=== PATIENT | female | born 1985 | race Caucasian/White ===

== ENCOUNTER 2016-09-17 13:05 | Emergency (ER) | payer OTHER ==
--- NOTE | 2016-09-17 15:26 | ED NURSING NOTES ---
Clinical Report - Nurses [facility] [address] [place] [address] 09/17/2016 13:07 Patient: GERALD OTTO TRIAGE Triage time 13:Sep 17 2016. Chief Complaint: NAUSEA and VOMITING and (pt reports waking during the night with n/v- last emesis 45 minutes ago). Alert. No acute distress. SEPSIS SCREEN: Sepsis Screen. Negative (no infection suspected/documented). --13:29 Joseph Pinon R.N. 13:22 09/17/16. BP: 117/81. HR: 97. RR: 17. O2 saturation: 100% on room air. Temp: 98.6 F (oral). Pain level now: 11/17. --13:29 Joseph Pinon R.N. Weight: 79.3 kg stated. Height/Length: 67 inches Per Patient. BMI: 27.4. --13:27 Joseph Pinon R.N. Medications Ranitidine HCl Oral. --13:27 Joseph Pinon R.N. BuPROPion HCl Oral 300 mg, daily. --13:27 Joseph Pinon R.N. HydrOXYzine HCl Oral. --13:27 Joseph Pinon R.N. Medication/allergy information source: the patient. --13:29 Joseph Pinon R.N. Allergies None. --13:28 Joseph Pinon R.N. History Arrived by private vehicle. Historian: patient. The patient has had nausea and vomiting. 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 PAST MEDICAL HX: Immunizations: up-to-date. Last normal menstrual period- 11 days ago. SOCIAL HX: Smoker- current status unknown. Alcohol use; consumes beer occasionally. History of drug use. ("smoked a j here on the way here"). No recent travel. No infectious disease exposure. No known contact with a sick individual. ABUSE ASSESSMENT: No report of abuse. SELF HARM ASSESSMENT: A self harm assessment was performed. The patient answered "no" to the question "Have you recently felt down, depressed, or hopeless?", "Have you noticed less interest or pleasure in doing things?", "Do you have thoughts of harming or killing yourself?", "Are you here because you tried to hurt yourself?", "Have you ever tried to hurt yourself before today?", "Have you recently had thoughts about harming or killing others?" and "Do you have any dangerous items in your possession?". FALL RISK ASSESSMENT: Fall risk assessment completed. No fall risk identified. NUTRITIONAL RISK ASSESSMENT: The nutritional risk assessment revealed no deficiencies. FUNCTIONAL ASSESSMENT: Functional assessment: no impairments noted. LEARNING NEEDS ASSESSMENT: The learning needs assessment revealed no barriers. SKIN INTEGRITY ASSESSMENT: Skin integrity risk assessment completed. No skin integrity risk identified. --13:29 Joseph Pinon R.N. PROBLEMS: Candidiasis. Cellulitis. Abscess. Depression. Dental Pain. Dental Abscess. URI. Migraine Headache. Anxiety Reaction. --13:28 Joseph Pinon R.N. ADDITIONAL SURGERIES: Dental Surgery. Oral surgery . Tubal Ligation. --13:28 Joseph Pinon R.N. Interventions ID band on patient. To treatment room. --13:29 Joseph Pinon R.N. PHYSICAL ASSESSMENT Ambulatory to room. Patient gowned. GENERAL / NEURO / PSYCH: Alert. Oriented X 4. Appears in no acute distress. HEENT: Mucous membranes are pink. RESPIRATORY: Respirations not labored. Breath sounds within normal limits. CVS: Capillary refill less than 2 seconds. GI / : Abdomen soft and nontender. Bowel sounds within normal limits. SKIN: Skin is warm and dry. --13:29 Joseph Pinon R.N. NURSING PROGRESS NOTES Patient gowned. Head of bed elevated. Patient identifiers checked. Call light placed in reach. Side rails up. Bed placed in lowest position. Brakes of bed on. --13:29 Joseph Pinon R.N. Patient ID band checked for patient name and birthdate: patient confirmed. Instructions provided to collect clean catch urine and patient verbalized understanding urine collected; sample sent to lab for urinalysis. Specimen labeled in the presence of the patient. --13:30 Joseph Pinon R.N. 13:35 09/17/2016 Site #1 started via IV in the right antecubital space with an 20g angiocath; one attempt. Blood drawn: rainbow set. Labeled in the presence of the patient and sent to the lab. Saline lock flushed with 10 mL saline. --13:45 Joseph Pinon R.N. 13:41 09/17/2016 Zofran (Ondansetron HCl) IVP 4 mg given. via site #1. Allergies verified and confirmed 5 rights. IV patency established. IV site checked: no pain, redness, or swelling. IV flushed thoroughly pre- and post-medication administration. IVP given by RN. --13:46 Joseph Pinon R.N. 13:46 09/17/2016 Started bag #1 1000 mL IV Fluids IV NS (Saline); at 1000 mL/hr via site #1 via IV pump. Allergies verified and confirmed 5 rights. IV patency established. IV site checked: no pain, redness, or swelling. IV flushed thoroughly pre- and post-medication administration. --13:46 Joseph Pinon R.N. 14:08 09/17/2016 Toradol IVP 30 mg given. via site #1. Allergies verified and confirmed 5 rights. IV patency established. IV site checked: no pain, redness, or swelling. IV flushed thoroughly pre- and post-medication administration. IVP given by RN. --14:08 Joseph Pinon R.N. 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 --14:10 Joseph Pinon R.N. 15:07 09/17/16. BP: 108/60. HR: 79. RR: 15. O2 saturation: 100%. Pain level now: 08/18. --15:08 Joseph Pinon R.N. Reassessment after fluids administered and medication administered (after toradol "It helped a little"). She is resting quietly and has had no adverse reaction. Overall patient status is improved. Patient waiting for disposition. ( pt reports improvement since presentation, pt texting on phone, call light in hand, waiting dispo from ED). --15:08 Joseph Pinon R.N. 15:09 09/17/2016 IV Fluids IV NS Discontinued: STOPPED. Total amount infused: 1000 mL. IV patency established. IV site checked: no pain, redness, or swelling. IV flushed thoroughly. --15:09 Joseph Pinon R.N. 15:09/17/2016 Toradol IVP Response: no adverse reaction pain is improving. Symptoms have improved the patient feels better. --15:09 Joseph Pinon R.N. 15:09/17/2016 Zofran IVP Response: no adverse reaction symptoms have improved the patient feels better. --15:09 Joseph Pinon R.N. 15:31 09/17/2016 Site #1 removed upon discharge. Bandaid applied. --15:36 Joseph Pinon R.N. DISPOSITION / DISCHARGE Departure time: 1538. Condition at departure: improved. No learning barriers present. Discharge instructions provided and reviewed with the patient. Reviewed medication(s) course information. Prescription(s) given to the patient. Patient verbalized understanding. Written instructions provided in [place]. The patient was discharged by the nurse practitioner. She was discharged home and accompanied by immigration guard. She left the Emergency Department ambulatory and via private vehicle. Motor Patrol Operator driving. --15:38 Joseph Pinon R.N. 15:36 09/17/16. BP: 105/64. HR: 84. RR: 15. O2 saturation: 100%. Temp: 98.2 F. Pain level now: 06/20. --15:38 Joseph Pinon R.N. Locked/Released at 09/17/2016 21:34 by Joseph Pinon R.N.
--- NOTE | 2016-09-17 15:26 | ED ORDER SUMMARY ---
..... Patient: GERALD OTTO OrderSheet [facility] VisitID: [id number] [place] [address] 31y, F Registration Date/Time: 09/17/2016 ORDER SHEET Weight: 79.3 kg (stated) Allergies: None GENERAL ORDERS: CBC w Diff Urgent (13:09/17/2016 HBivens A.R.N.P.) (Ack 13:29 KHoerner) (13:44 KPage-Kuchan R.N.) CMP Urgent (13:09/17/2016 HBivens A.R.N.P.) (Ack 13:29 KHoerner) (13:44 KPage-Kuchan R.N.) UA-Culture if indicated Urgent (13:09/17/2016 HBivens A.R.N.P.) (Ack 13:29 KHoerner) (13:44 KPage-Kuchan R.N.) Urine Urgent (13:09/17/2016 HBivens A.R.N.P.) (Ack 13:29 KHoerner) (13:44 KPage-Kuchan R.N.) Lipase Urgent (13:09/17/2016 HBivens A.R.N.P.) (Ack 13:29 KHoerner) (13:44 KPage-Kuchan R.N.) Amylase Urgent (13:09/17/2016 HBivens A.R.N.P.) (Ack 13:29 KHoerner) (13:44 KPage-Kuchan R.N.) MEDICATION ORDERS: IV FLUIDS: IV NS : initial bolus 1000 mL (1000 mL/hr), then none - (NOW) (13:09/17/2016 HBivens A.R.N.P.) (13:46 KPage-Kuchan R.N.) Zofran IV 4 mg (NOW) (13:09/17/2016 HBivens A.R.N.P.) (13:46 KPage-Kuchan R.N.) IV Saline Lock (13:09/17/2016 HBivens A.R.N.P.) (13:45 Maksim Granger.N.) Toradol IV 30 mg (NOW) (14:04 09/17/2016 HBivens A.R.N.P.) (14:08 Maksim Granger.N.) ORDER SHEET NOTES: [Electronically signed by Renu NunoRRamuN.PRamu (19:11 09/17/2016)] [Electronically signed by Joseph Pinon R.N. (21:34 09/17/2016)] [Electronically locked/signed by Joseph Pinon R.N. (21:34 09/17/2016)]
--- NOTE | 2016-09-17 15:26 | ED CLINICAL REPORT ---
Clinical Report - Physicians/Mid Levels [facility] [address] [place] [address] 09/17/2016 13:07 Patient: GERALD OTTO Time Seen: 13:11; initial patient contact, initial documentation, patient care assumed. Arrived- By private vehicle. Historian- patient. HISTORY OF PRESENT ILLNESS Chief Complaint: VOMITING. This started last night and is still present. It was abrupt in onset and has been constant. No recent travel. She has had nausea and mild, constant abdominal pain. The pain is described as generalized. She has had severe vomiting. The vomiting has occurred numerous times and has been bilious. No feculent emesis, blood-tinged emesis, coffee-grounds emesis, frankly bloody emesis or unusually dark emesis. She has had moderate loose stools. This has occurred several times. No bloody, watery, mucous containing or blood-tinged diarrhea. No black stools, bloody stools, constipation, flank pain or history of possible bad food exposure. No known contact with a sick individual or change in routine. Has not recently been camping or on antibiotics. The illness is described as moderate. Similar symptoms previously: None. Recent medical care: Not recently seen/assessed. REVIEW OF SYSTEMS No fever, difficulty with urination, dark urine, chest pain or difficulty breathing. Denies current . All systems otherwise negative, except as recorded above. PAST HISTORY See nurses notes. PROBLEMS: Candidiasis. Cellulitis. Abscess. Depression. Dental Pain. Dental Abscess. URI. Migraine Headache. Anxiety Reaction. --13:28 Joseph Pinon, RRamuN. ADDITIONAL SURGERIES: Dental Surgery. Oral surgery . Tubal Ligation. --13:28 Joseph Pinon, R.Rafiq. SOCIAL HISTORY Light tobacco smoker. Occasional alcohol use. History of occasional drug use: marijuana. Recently used drugs just prior to arrival. Under influence in ED. No recent travel. Is a local resident. FAMILY HISTORY Negative. ADDITIONAL NOTES The nursing notes have been reviewed with agreement regarding the chief complaint, HPI, ROS, PMH and patient medications and allergies. PHYSICAL EXAM Vital Signs: 09/17/2016 13:22 BP: 117/81. HR: 97. RR: 17. O2 saturation: 100%. Temp: 98.6 F. Pain level now: 11/17. Have been reviewed as normal and appear to be correct. Appearance: Alert. Oriented X3. No acute distress. Eyes: Pupils equal, round and reactive to light. Eyes normal inspection. ENT: Nose normal. Pharynx normal. Neck: Normal inspection. Neck supple. CVS: Normal heart rate and rhythm. Heart sounds normal. Pulses normal. Respiratory: No respiratory distress. Breath sounds normal. Abdomen: Soft and nontender. Bowel sounds normal. No organomegaly. No mass. Back: Normal inspection. Skin: Skin warm and dry. Normal skin color. No rash. Normal skin turgor. Extremities: Extremities exhibit normal ROM. No lower extremity edema. Neuro: Oriented X 3. No motor deficit. No sensory deficit. LABS, X-RAYS, AND EKG Laboratory Tests: UA-Culture if indicated: (TAIWO: 09/17/2016 13:40) ( [facility] 09/17/2016 14:04) Final results Test Result Flag Units (Reference) URINE COLOR YELLOW URINE APPEARANCE CLEAR URINE GLUCOSE NEGATIVE (NEGATIVE) URINE BILIRUBIN NEGATIVE (NEGATIVE) URINE KETONE TRACE (NEGATIVE) URINE SPECIFIC GRAVITY 1.015 (1.010-1.030) URINE PH 8.0 (5.0-8.0) URINE PROTEIN TRACE (NEGATIVE) URINE UROBILINOGEN 0.2 EU/dL (0.2-1.0) URINE NITRITE NEGATIVE (NEGATIVE) URINE BLOOD NEGATIVE (NEGATIVE) URINE LEUK ESTERASE NEGATIVE (NEGATIVE) URINE RBC NONE SEEN rbc/hpf (0-1) URINE WBC 1-3 wbc/hpf (0-1) URINE EPITHELIAL CELLS >15 EPI/hpf (0-5) URINE BACTERIA MODERATE (2+ TO 3+) (NONE SEEN) URINE COMMENT CULTURE INDICATED 2+ MUCUSURINE CULTURES ARE SET-UP BASED ON THE FOLLOWING CRITERIA:POSITIVE NITRITEPOSITIVE LEUKOCYTE ESTERASEGREATER THAN 10 WHITE BLOOD CELLSMODERATE (2+) OR GREATER BACTERIA Urine: (TAIWO: 09/17/2016 13:40) ( MsgRcvd 09/17/2016 13:57) Final results Test Result Flag Units (Reference) URINE NEGATIVE CBC w Diff: (TAIWO: 09/17/2016 13:40) ( MsgRcvd 09/17/2016 13:51) Final results Test Result Flag Units (Reference) WHITE BLOOD COUNT 7.5 K/uL (4.5-11.5) RED BLOOD COUNT 4.08 M/uL (4.00-5.20) HEMOGLOBIN 11.9 L gm/dL (12.0-16.0) HEMATOCRIT 35.0 L % (36.0-46.0) MEAN CELL VOLUME 86 fL (80-100) MEAN CORPUSCULAR HGB 29 pg (26-34) MEAN CORPUSCULAR HGB CONC 34 g/dL (31-37) RED CELL DISTRIBUTION WIDTH 15.1 H % (11.6-14.8) PLATELET COUNT 283 K/uL (150-400) NEUTROPHIL % 78.9 H % (50-75) LYMPH % 15.6 L % (25-40) MONO % 5.1 % (3-14) EOSINOPHIL % 0.1 % (0-4) BASOPHIL % 0.3 % (0-2) CMP: (TAIWO: 09/17/2016 13:40) ( MsgRcvd 09/17/2016 14:23) Final results Test Result Flag Units (Reference) GLUCOSE 97 mg/dL (70-110) BUN 9 mg/dL (7-18) CREATININE 0.7 mg/dL (0.6-1.3) Estimated GFR >60 mL/min Estimated GFR- >60 mL/min Note: Persistent reduction over 3 months in eGFR<60 mL/min/1.73 m2 defines CKD. Patients with eGFR values>=60 mL/min/1.73 m2 may also have CKD if evidence ofpersistent proteinuria. Additional information may be foundat www.kidney.org. SODIUM 140 mmol/L (136-145) POTASSIUM 4.1 mmol/L (3.5-5.1) CHLORIDE 103 mmol/L (98-107) CARBON DIOXIDE 25 mmol/L (21-32) CALCIUM 8.8 mg/dL (8.5-10.1) TOTAL PROTEIN 7.8 g/dL (6.4-8.2) ALBUMIN 4.0 g/dL (3.3-5.0) BILIRUBIN, TOTAL 0.5 mg/dL (0.0-1.0) ALKALINE PHOSPHATASE 54 U/L (46-116) AST (SGOT) 20 U/L (15-37) ALT (SGPT) 27 U/L (12-78) LIPASE 91 U/L (73-393) AMYLASE 44 U/L (25-115) . PROGRESS AND PROCEDURES Patient counseled in person regarding the patient's stable condition, test results and diagnosis. 1430. Differential Diagnosis: I considered gastritis, peptic ulcer disease, ischemia, gastroesophageal reflux disease, gastroparesis, ulcerative colitis, small bowel obstruction, colonic obstruction, colon cancer, gastroenteritis, cholecystitis, pancreatitis, viral syndrome, enterocolitis, urinary tract infection, hepatitis, sepsis, drugs and as a possible cause of vomiting in this patient. This is a partial list of diagnoses considered. Above considerations are based on history, physical exam, reassessment and laboratory data. Differential diagnosis was discussed with patient. Disposition: Discharged home in good and improved condition (14:40). Condition: good and stable. CLINICAL IMPRESSION Acute noninfectious gastroenteritis. INSTRUCTIONS Take clear liquids only (frequent sips) for the next 24 hours until better. May continue medications with sips only. Advance diet as tolerated. Avoid. Warnings: GENERAL WARNINGS: Return or contact your physician immediately if your condition worsens or changes unexpectedly, if not improving as expected, or if other problems arise. SPECIFICALLY, return if you develop pain in the abdomen, fever, the inability to keep fluids down, blood in vomitus, blood in diarrhea, fainting or lightheadedness. Prescription Medications: Zofran 4 mg: Take 1 orally every six hours as needed for nausea/vomiting. Dispense ten (10). No refills. Substitution is permissible. Follow-up: Follow up with your doctor in about two days even if well. Call for an appointment. Summary of care provided to patient. Understanding of the discharge instructions verbalized by patient. (Electronically signed by Renu Nuno A.R.N.P. 09/17/2016 19:11)
--- NOTE | 2016-09-17 15:26 | ED ORDER SUMMARY ---
..... Patient: GERALD OTTO OrderSheet [facility] VisitID: [id number] [place] [address] 31y, F Registration Date/Time: 09/17/2016 ORDER SHEET Weight: 79.3 kg (stated) Allergies: None GENERAL ORDERS: CBC w Diff Urgent (13:09/17/2016 HBivens A.R.N.P.) (Ack 13:29 KHoerner) (13:44 KPage-Kuchan R.N.) CMP Urgent (13:09/17/2016 HBivens A.R.N.P.) (Ack 13:29 KHoerner) (13:44 KPage-Kuchan R.N.) UA-Culture if indicated Urgent (13:09/17/2016 HBivens A.R.N.P.) (Ack 13:29 KHoerner) (13:44 KPage-Kuchan R.N.) Urine Urgent (13:09/17/2016 HBivens A.R.N.P.) (Ack 13:29 KHoerner) (13:44 KPage-Kuchan R.N.) Lipase Urgent (13:09/17/2016 HBivens A.R.N.P.) (Ack 13:29 KHoerner) (13:44 KPage-Kuchan R.N.) Amylase Urgent (13:09/17/2016 HBivens A.R.N.P.) (Ack 13:29 KHoerner) (13:44 KPage-Kuchan R.N.) MEDICATION ORDERS: IV FLUIDS: IV NS : initial bolus 1000 mL (1000 mL/hr), then none - (NOW) (13:09/17/2016 HBivens A.R.N.P.) (13:46 KPage-Kuchan R.N.) Zofran IV 4 mg (NOW) (13:09/17/2016 HBivens A.R.N.P.) (13:46 KPage-Kuchan R.N.) IV Saline Lock (13:09/17/2016 HBivens A.R.N.P.) (13:45 Maksim Granger.N.) Toradol IV 30 mg (NOW) (14:04 09/17/2016 HBivens A.R.N.P.) (14:08 Maksim Granger.N.) ORDER SHEET NOTES: [Electronically signed by Renu NunoRRamuN.PRamu (19:11 09/17/2016)] [Electronically signed by Joseph Pinon R.N. (21:34 09/17/2016)] [Electronically locked/signed by Joseph Pinon R.N. (21:34 09/17/2016)]
--- NOTE | 2016-09-17 15:26 | ED NURSING NOTES ---
Clinical Report - Nurses [facility] [address] [place] [address] 09/17/2016 13:07 Patient: GERALD OTTO TRIAGE Triage time 13:Sep 17 2016. Chief Complaint: NAUSEA and VOMITING and (pt reports waking during the night with n/v- last emesis 45 minutes ago). Alert. No acute distress. SEPSIS SCREEN: Sepsis Screen. Negative (no infection suspected/documented). --13:29 Joseph Pinon R.N. 13:22 09/17/16. BP: 117/81. HR: 97. RR: 17. O2 saturation: 100% on room air. Temp: 98.6 F (oral). Pain level now: 11/17. --13:29 Joseph Pinon R.N. Weight: 79.3 kg stated. Height/Length: 67 inches Per Patient. BMI: 27.4. --13:27 Joseph Pinon R.N. Medications Ranitidine HCl Oral. --13:27 Joseph Pinon R.N. BuPROPion HCl Oral 300 mg, daily. --13:27 Joseph Pinon R.N. HydrOXYzine HCl Oral. --13:27 Joseph Pinon R.N. Medication/allergy information source: the patient. --13:29 Joseph Pinon R.N. Allergies None. --13:28 Joseph Pinon R.N. History Arrived by private vehicle. Historian: patient. The patient has had nausea and vomiting. 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 PAST MEDICAL HX: Immunizations: up-to-date. Last normal menstrual period- 11 days ago. SOCIAL HX: Smoker- current status unknown. Alcohol use; consumes beer occasionally. History of drug use. ("smoked a j here on the way here"). No recent travel. No infectious disease exposure. No known contact with a sick individual. ABUSE ASSESSMENT: No report of abuse. SELF HARM ASSESSMENT: A self harm assessment was performed. The patient answered "no" to the question "Have you recently felt down, depressed, or hopeless?", "Have you noticed less interest or pleasure in doing things?", "Do you have thoughts of harming or killing yourself?", "Are you here because you tried to hurt yourself?", "Have you ever tried to hurt yourself before today?", "Have you recently had thoughts about harming or killing others?" and "Do you have any dangerous items in your possession?". FALL RISK ASSESSMENT: Fall risk assessment completed. No fall risk identified. NUTRITIONAL RISK ASSESSMENT: The nutritional risk assessment revealed no deficiencies. FUNCTIONAL ASSESSMENT: Functional assessment: no impairments noted. LEARNING NEEDS ASSESSMENT: The learning needs assessment revealed no barriers. SKIN INTEGRITY ASSESSMENT: Skin integrity risk assessment completed. No skin integrity risk identified. --13:29 Joseph Pinon R.N. PROBLEMS: Candidiasis. Cellulitis. Abscess. Depression. Dental Pain. Dental Abscess. URI. Migraine Headache. Anxiety Reaction. --13:28 Joseph Pinon R.N. ADDITIONAL SURGERIES: Dental Surgery. Oral surgery . Tubal Ligation. --13:28 Joseph Pinon R.N. Interventions ID band on patient. To treatment room. --13:29 Joseph Pinon R.N. PHYSICAL ASSESSMENT Ambulatory to room. Patient gowned. GENERAL / NEURO / PSYCH: Alert. Oriented X 4. Appears in no acute distress. HEENT: Mucous membranes are pink. RESPIRATORY: Respirations not labored. Breath sounds within normal limits. CVS: Capillary refill less than 2 seconds. GI / : Abdomen soft and nontender. Bowel sounds within normal limits. SKIN: Skin is warm and dry. --13:29 Joseph Pinon R.N. NURSING PROGRESS NOTES Patient gowned. Head of bed elevated. Patient identifiers checked. Call light placed in reach. Side rails up. Bed placed in lowest position. Brakes of bed on. --13:29 Joseph Pinon R.N. Patient ID band checked for patient name and birthdate: patient confirmed. Instructions provided to collect clean catch urine and patient verbalized understanding urine collected; sample sent to lab for urinalysis. Specimen labeled in the presence of the patient. --13:30 Joseph Pinon R.N. 13:35 09/17/2016 Site #1 started via IV in the right antecubital space with an 20g angiocath; one attempt. Blood drawn: rainbow set. Labeled in the presence of the patient and sent to the lab. Saline lock flushed with 10 mL saline. --13:45 Joseph Pinon R.N. 13:41 09/17/2016 Zofran (Ondansetron HCl) IVP 4 mg given. via site #1. Allergies verified and confirmed 5 rights. IV patency established. IV site checked: no pain, redness, or swelling. IV flushed thoroughly pre- and post-medication administration. IVP given by RN. --13:46 Joseph Pinon R.N. 13:46 09/17/2016 Started bag #1 1000 mL IV Fluids IV NS (Saline); at 1000 mL/hr via site #1 via IV pump. Allergies verified and confirmed 5 rights. IV patency established. IV site checked: no pain, redness, or swelling. IV flushed thoroughly pre- and post-medication administration. --13:46 Joseph Pinon R.N. 14:08 09/17/2016 Toradol IVP 30 mg given. via site #1. Allergies verified and confirmed 5 rights. IV patency established. IV site checked: no pain, redness, or swelling. IV flushed thoroughly pre- and post-medication administration. IVP given by RN. --14:08 Joseph Pinon R.N. 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 --14:10 Joseph Pinon R.N. 15:07 09/17/16. BP: 108/60. HR: 79. RR: 15. O2 saturation: 100%. Pain level now: 08/18. --15:08 Joseph Pinon R.N. Reassessment after fluids administered and medication administered (after toradol "It helped a little"). She is resting quietly and has had no adverse reaction. Overall patient status is improved. Patient waiting for disposition. ( pt reports improvement since presentation, pt texting on phone, call light in hand, waiting dispo from ED). --15:08 Joseph Pinon R.N. 15:09 09/17/2016 IV Fluids IV NS Discontinued: STOPPED. Total amount infused: 1000 mL. IV patency established. IV site checked: no pain, redness, or swelling. IV flushed thoroughly. --15:09 Joseph Pinon R.N. 15:09/17/2016 Toradol IVP Response: no adverse reaction pain is improving. Symptoms have improved the patient feels better. --15:09 Joseph Pinon R.N. 15:09/17/2016 Zofran IVP Response: no adverse reaction symptoms have improved the patient feels better. --15:09 Joseph Pinon R.N. 15:31 09/17/2016 Site #1 removed upon discharge. Bandaid applied. --15:36 Joseph Pinon R.N. DISPOSITION / DISCHARGE Departure time: 1538. Condition at departure: improved. No learning barriers present. Discharge instructions provided and reviewed with the patient. Reviewed medication(s) course information. Prescription(s) given to the patient. Patient verbalized understanding. Written instructions provided in [place]. The patient was discharged by the nurse practitioner. She was discharged home and accompanied by lead handler. She left the Emergency Department ambulatory and via private vehicle. Service Planner driving. --15:38 Joseph Pinon R.N. 15:36 09/17/16. BP: 105/64. HR: 84. RR: 15. O2 saturation: 100%. Temp: 98.2 F. Pain level now: 06/20. --15:38 Joseph Pinon R.N. Locked/Released at 09/17/2016 21:34 by Joseph Pinon R.N.
--- NOTE | 2016-09-17 21:34 | ED MED RECONCILIATION SUMMARY ---
Patient: GERALD OTTO Medication Reconciliation Report [facility] VisitID: [id number] [address] [place] [address] 31y, F Registration Date/Time: 09/17/2016 Weight: 79.3 kg Height/Length: 67 in. BMI: 27.4 ALLERGIES: None The patient's Home Medications are listed below: THE FOLLOWING MEDICATIONS NEED TO BE RECONCILED: BuPROPion HCl Oral 300 mg, daily HydrOXYzine HCl Oral Ranitidine HCl Oral The source(s) of the original Home Medication information: patient The following Medications were given to the patient in the Emergency Department: IV NS IV Fluids bolus 0, then 1000 mL/hr, administered: 09/17/2016 1:46:00 PM Zofran [IVP] IVP 4 mg, administered: 09/17/2016 1:41:00 PM Toradol [IVP] IVP 30 mg, administered: 09/17/2016 2:08:00 PM The following Medications were prescribed to the patient: Zofran 4 mg: Take 1 orally every six hours as needed for nausea/vomiting. Dispense ten (10). No refills. Substitution is permissible. -- Renu Nuno A.R.N.P.
--- NOTE | 2016-09-17 21:34 | ED MAR SUMMARY ---
..... Medication Administration Record [facility] [address] [place] [address] Patient: GERALD OTTO Visit ID: [id number] 31y, F Weight: 79.3 kg Height/Length: 67 in BMI: 27.4 ALLERGIES: None Given 13:41 09/17/2016 Joseph Pinon R.N. Medication Administered: ZOFRAN [IVP] (ONDANSETRON HCL), Dose: 4 mg IVP, Site: #1 right AC. Medication Ordered: Zofran IV 4 mg (NOW). Start 13:46 09/17/2016 Joseph Pinon R.N., Stop 15:09 09/17/2016 Joseph Pinon R.N. Medication Administered: IV NS (SALINE), Dose: IV Fluids, Rate: 1000 mL/hr, Dispensed: 1000 mL bag, Site: #1 right AC. Medication Ordered: IV NS : initial bolus 1000 mL (1000 mL/hr), then none - (NOW). Given 14:08 09/17/2016 Joseph Pinon R.N. Medication Administered: TORADOL [IVP], Dose: 30 mg IVP, Site: #1 right AC. Medication Ordered: Toradol IV 30 mg (NOW).
--- NOTE | 2016-09-17 21:34 | ED DISCHARGE INSTRUCTIONS ---
Patient: GERALD OTTO General Instructions [facility] VisitID: [id number] [place] [address] 31y, F Registration Date/Time: 09/17/2016 Acute noninfectious gastroenteritis. INSTRUCTIONS Take clear liquids only (frequent sips) for the next 24 hours until better. May continue medications with sips only. Advance diet as tolerated. Avoid. Warnings: GENERAL WARNINGS: Return or contact your physician immediately if your condition worsens or changes unexpectedly, if not improving as expected, or if other problems arise. SPECIFICALLY, return if you develop pain in the abdomen, fever, the inability to keep fluids down, blood in vomitus, blood in diarrhea, fainting or lightheadedness. Prescription Medications: Zofran 4 mg: Take 1 orally every six hours as needed for nausea/vomiting. Dispense ten (10). No refills. Substitution is permissible. Follow-up: Follow up with your doctor in about two days even if well. Call for an appointment. Summary of care provided to patient. Understanding of the discharge instructions verbalized by patient. ADDITIONAL INFORMATION Gastroenteritis [Non-Infectious, 6 Yr-Adult] Your symptoms today are coming from the intestinal tract. This may occur as a result of food sensitivity, inflammation of the GI tract, medicines, stress or other causes not related to infection. This may last from 1-3 days. Antibiotics are not effective, but simple home treatment will be helpful. Home Care: If symptoms are severe, rest at home for the next 24 hours. You may use acetaminophen (Tylenol) or ibuprofen (Motrin, Advil) to control fever, unless another medicine was prescribed. [NOTE: If you have chronic liver or kidney disease or ever had a stomach ulcer or GI bleeding, talk with your doctor before using these medicines.] (Aspirin should never be used in anyone under 18 years of age who is ill with a fever. It may cause severe liver damage.) Avoid tobacco and alcohol use, which may make your symptoms worse. If medicines for diarrhea or vomiting were prescribed, take only as directed. Once vomiting stops, then follow these guidelines: During The First 12-24 Hours follow the diet below: gingerale, mineral water (plain or flavored), decaffeinated tea and coffee. During The Next 24 Hours you may add the following to the above: DURING THE NEXT 24 HOURS Gradually resume a normal diet, as you feel better and your symptoms lessen. Follow Up with your doctor as advised if you are not improving over the next 2-3 days. If a stool (diarrhea) sample was taken, you may call in 2 days (or as directed) for the results. Get Prompt Medical Attention if any of the following occur: Increasing abdominal pain or constant lower right abdominal pain Continued vomiting (unable to keep liquids down) Frequent diarrhea (more than 5 times a day) Blood in vomit or stool (black or red color) Reduced oral intake Dark urine, reduced urine output Weakness, dizziness, fainting Drowsiness, confusion, stiff neck or seizure Fever of 100.4F (38C) or higher, or as directed by your healthcare provider New rash Clear Liquid Diet Clear liquids are any liquid that you can see through as well as those that are very easy to digest. This is used while the body is recovering from irritation or infection of the stomach or intestinal tract. It may also be used before special procedures or surgery. This diet is to be used no more than three days. You may include the following items. Adults Adults should drink a total of 23 quarts of liquid per day. It may be easier to drink small frequent servings rather than a few large ones. Liquids can include: Fruit juices.Strained orange juice or lemonade (no pulp), apple, grape and cranberry juice, clear fruit drinks, sports drinks Beverages.Sport drinks, sodas, mineral water (plain or flavored), tea, black coffee, liquid gelatin (add twice the recommended amount of water) Soups.Clear broth, consomm, bouillon Desserts.Plain gelatin, popsicles, fruit juice bars Children Over 2 years old The following liquids are acceptable for children over age 2: Fruit juices.Strained orange juice or lemonade (no pulp), apple, grape and cranberry juice, clear fruit drinks Beverages. Sports drinks, sodas, mineral water (plain or flavored), tea, liquid gelatin (add twice the recommended amount of water) Soups. Clear broth, consomm, bouillon Desserts. Plain gelatin, popsicles, fruit juice bars Children under 2 years old Oral rehydration fluids such are available at drug stores and most grocery stores without a prescription. [place] Diet A bland diet is used for patients with an upset stomach. It consists of foods that are mild and easy to digest. It is better to eat small frequent meals rather than three large meals a day. BEVERAGES OK: Fruit juices, non-caffeinated teas and coffee, non-carbonated lora AVOID: Carbonated beverage, caffeinated tea and coffee, all alcoholic beverages BREAD OK: Refined white, wheat or rye bread, sheila or soda crackers, [place] toast, plain rolls, bagels AVOID: Whole-grain bread CEREAL OK: Refined cereals: cooked or ready to eat AVOID: Whole grain cereals and granola, or those containing bran, seeds or nuts DESSERTS OK: Peanut butter and all others except those to "avoid" AVOID: Chocolate, cocoa, coconut, popcorn, nuts, seeds, jam, marmalade FRUITS OK: Canned, cooked, frozen or fresh fruits without seeds or tough skin AVOID: Olives, skin and seeds of fruit MEATS OK: All fresh or preserved meat, fish and fowl AVOID: Any that are prepared with those spices to "avoid" CHEESE & EGGS OK: Eggs, cottage cheese, cream cheese, other cheeses AVOID: All cheeses made with those spices to "avoid" POTATOES & PASTA OK: Potato, rice, macaroni, noodles, spaghetti AVOID: None SOUPS OK: All soups without heavy seasoning AVOID: Soups made with those spices to "avoid" VEGETABLES OK: Canned, cooked, fresh or frozen mildly flavored vegetables without seeds, skins or coarse fiber AVOID: Vegetables prepared with those spices to "avoid"; skin and seeds of vegetables and those with coarse fiber SPICES OK: Salt, lemon and [place] juice, vinegar, all extracts, leigh, cinnamon, thyme, mace, allspice, paprika AVOID: [place] powder, cloves, pepper, seed spices, garlic, gravy pickles, highly seasoned salad dressings Clear Liquid Diet Clear liquids are any liquid that you can see through as well as those that are very easy to digest. This is used while the body is recovering from irritation or infection of the stomach or intestinal tract. It may also be used before special procedures or surgery. This diet is to be used no more than three days. You may include the following items. Adults Adults should drink a total of 23 quarts of liquid per day. It may be easier to drink small frequent servings rather than a few large ones. Liquids can include: Fruit juices.Strained orange juice or lemonade (no pulp), apple, grape and cranberry juice, clear fruit drinks, sports drinks Beverages.Sport drinks, sodas, mineral water (plain or flavored), tea, black coffee, liquid gelatin (add twice the recommended amount of water) Soups.Clear broth, consomm, bouillon Desserts.Plain gelatin, popsicles, fruit juice bars Children Over 2 years old The following liquids are acceptable for children over age 2: Fruit juices.Strained orange juice or lemonade (no pulp), apple, grape and cranberry juice, clear fruit drinks Beverages. Sports drinks, sodas, mineral water (plain or flavored), tea, liquid gelatin (add twice the recommended amount of water) Soups. Clear broth, consomm, bouillon Desserts. Plain gelatin, popsicles, fruit juice bars Children under 2 years old Oral rehydration fluids such are available at drug stores and most grocery stores without a prescription. Ondansetron Oral disintegrating tablet What is this medicine? ONDANSETRON (on TRAVIS se mary) is used to treat nausea and vomiting caused by chemotherapy. It is also used to prevent or treat nausea and vomiting after surgery. How should I use this medicine? These tablets are made to dissolve in the mouth. Do not try to push the tablet through the foil backing. With dry hands, peel away the foil backing and gently remove the tablet. Place the tablet in the mouth and allow it to dissolve, then swallow. While you may take these tablets with water, it is not necessary to do so. Talk to your burnisher regarding the use of this medicine in children. Special care may be needed. What side effects may I notice from receiving this medicine? Side effects that you should report to your doctor or health rn wound care as soon as possible: allergic reactions like skin rash, itching or hives, swelling of the face, lips, or tongue breathing problems dizziness fast or irregular heartbeat feeling faint or lightheaded, falls fever and chills swelling of the hands and feet tightness in the chest Side effects that usually do not require medical attention (report to your doctor or health rn wound care if they continue or are bothersome): constipation or diarrhea headache What may interact with this medicine? Do not take this medicine with any of the following medications: -apomorphine -cisapride -dofetilide -dronedarone -pimozide -thioridazine -ziprasidone This medicine may also interact with the following medications: -carbamazepine -phenytoin -rifampicin -tramadol -other medicines that prolong the QT interval (cause an abnormal heart rhythm) What if I miss a dose? If you miss a dose, take it as soon as you can. If it is almost time for your next dose, take only that dose. Do not take double or extra doses. Where should I keep my medicine? Keep out of the reach of children. Store between 2 and 30 degrees C (36 and 86 degrees F). Throw away any unused medicine after the expiration date. What should I tell my health care provider before I take this medicine? They need to know if you have any of these conditions: heart disease history of irregular heartbeat liver disease low levels of magnesium or potassium in the blood an unusual or allergic reaction to ondansetron, granisetron, other medicines, foods, dyes, or preservatives or trying to get breast-feeding What should I watch for while using this medicine? Check with your doctor or health rn wound care as soon as you can if you have any sign of an allergic reaction. You have been given the following additional information: Gastroenteritis, Non-Infectious (Child) (Adult) Diet, Clear Liquid Diet, [place] (Adult) Diet, Clear Liquid Ondansetron Oral disintegrating tablet (Electronically signed by Renu Nuno A.R.N.P. 09/17/2016 19:11)
--- NOTE | 2016-09-17 21:34 | ED MED RECONCILIATION SUMMARY ---
Patient: GERALD OTTO Medication Reconciliation Report [facility] VisitID: [id number] [address] [place] [address] 31y, F Registration Date/Time: 09/17/2016 Weight: 79.3 kg Height/Length: 67 in. BMI: 27.4 ALLERGIES: None The patient's Home Medications are listed below: THE FOLLOWING MEDICATIONS NEED TO BE RECONCILED: BuPROPion HCl Oral 300 mg, daily HydrOXYzine HCl Oral Ranitidine HCl Oral The source(s) of the original Home Medication information: patient The following Medications were given to the patient in the Emergency Department: IV NS IV Fluids bolus 0, then 1000 mL/hr, administered: 09/17/2016 1:46:00 PM Zofran [IVP] IVP 4 mg, administered: 09/17/2016 1:41:00 PM Toradol [IVP] IVP 30 mg, administered: 09/17/2016 2:08:00 PM The following Medications were prescribed to the patient: Zofran 4 mg: Take 1 orally every six hours as needed for nausea/vomiting. Dispense ten (10). No refills. Substitution is permissible. -- Renu Nuno A.R.N.P.
--- NOTE | 2016-09-17 21:34 | ED MAR SUMMARY ---
..... Medication Administration Record [facility] [address] [place] [address] Patient: GERALD OTTO Visit ID: [id number] 31y, F Weight: 79.3 kg Height/Length: 67 in BMI: 27.4 ALLERGIES: None Given 13:41 09/17/2016 Joseph Pinon R.N. Medication Administered: ZOFRAN [IVP] (ONDANSETRON HCL), Dose: 4 mg IVP, Site: #1 right AC. Medication Ordered: Zofran IV 4 mg (NOW). Start 13:46 09/17/2016 Joseph Pinon R.N., Stop 15:09 09/17/2016 Joseph Pinon R.N. Medication Administered: IV NS (SALINE), Dose: IV Fluids, Rate: 1000 mL/hr, Dispensed: 1000 mL bag, Site: #1 right AC. Medication Ordered: IV NS : initial bolus 1000 mL (1000 mL/hr), then none - (NOW). Given 14:08 09/17/2016 Joseph Pinon R.N. Medication Administered: TORADOL [IVP], Dose: 30 mg IVP, Site: #1 right AC. Medication Ordered: Toradol IV 30 mg (NOW).
--- NOTE | 2016-09-17 21:34 | ED DISCHARGE INSTRUCTIONS ---
Patient: GERALD OTTO General Instructions [facility] VisitID: [id number] [place] [address] 31y, F Registration Date/Time: 09/17/2016 Acute noninfectious gastroenteritis. INSTRUCTIONS Take clear liquids only (frequent sips) for the next 24 hours until better. May continue medications with sips only. Advance diet as tolerated. Avoid. Warnings: GENERAL WARNINGS: Return or contact your physician immediately if your condition worsens or changes unexpectedly, if not improving as expected, or if other problems arise. SPECIFICALLY, return if you develop pain in the abdomen, fever, the inability to keep fluids down, blood in vomitus, blood in diarrhea, fainting or lightheadedness. Prescription Medications: Zofran 4 mg: Take 1 orally every six hours as needed for nausea/vomiting. Dispense ten (10). No refills. Substitution is permissible. Follow-up: Follow up with your doctor in about two days even if well. Call for an appointment. Summary of care provided to patient. Understanding of the discharge instructions verbalized by patient. ADDITIONAL INFORMATION Gastroenteritis [Non-Infectious, 6 Yr-Adult] Your symptoms today are coming from the intestinal tract. This may occur as a result of food sensitivity, inflammation of the GI tract, medicines, stress or other causes not related to infection. This may last from 1-3 days. Antibiotics are not effective, but simple home treatment will be helpful. Home Care: If symptoms are severe, rest at home for the next 24 hours. You may use acetaminophen (Tylenol) or ibuprofen (Motrin, Advil) to control fever, unless another medicine was prescribed. [NOTE: If you have chronic liver or kidney disease or ever had a stomach ulcer or GI bleeding, talk with your doctor before using these medicines.] (Aspirin should never be used in anyone under 18 years of age who is ill with a fever. It may cause severe liver damage.) Avoid tobacco and alcohol use, which may make your symptoms worse. If medicines for diarrhea or vomiting were prescribed, take only as directed. Once vomiting stops, then follow these guidelines: During The First 12-24 Hours follow the diet below: gingerale, mineral water (plain or flavored), decaffeinated tea and coffee. During The Next 24 Hours you may add the following to the above: DURING THE NEXT 24 HOURS Gradually resume a normal diet, as you feel better and your symptoms lessen. Follow Up with your doctor as advised if you are not improving over the next 2-3 days. If a stool (diarrhea) sample was taken, you may call in 2 days (or as directed) for the results. Get Prompt Medical Attention if any of the following occur: Increasing abdominal pain or constant lower right abdominal pain Continued vomiting (unable to keep liquids down) Frequent diarrhea (more than 5 times a day) Blood in vomit or stool (black or red color) Reduced oral intake Dark urine, reduced urine output Weakness, dizziness, fainting Drowsiness, confusion, stiff neck or seizure Fever of 100.4F (38C) or higher, or as directed by your healthcare provider New rash Clear Liquid Diet Clear liquids are any liquid that you can see through as well as those that are very easy to digest. This is used while the body is recovering from irritation or infection of the stomach or intestinal tract. It may also be used before special procedures or surgery. This diet is to be used no more than three days. You may include the following items. Adults Adults should drink a total of 23 quarts of liquid per day. It may be easier to drink small frequent servings rather than a few large ones. Liquids can include: Fruit juices.Strained orange juice or lemonade (no pulp), apple, grape and cranberry juice, clear fruit drinks, sports drinks Beverages.Sport drinks, sodas, mineral water (plain or flavored), tea, black coffee, liquid gelatin (add twice the recommended amount of water) Soups.Clear broth, consomm, bouillon Desserts.Plain gelatin, popsicles, fruit juice bars Children Over 2 years old The following liquids are acceptable for children over age 2: Fruit juices.Strained orange juice or lemonade (no pulp), apple, grape and cranberry juice, clear fruit drinks Beverages. Sports drinks, sodas, mineral water (plain or flavored), tea, liquid gelatin (add twice the recommended amount of water) Soups. Clear broth, consomm, bouillon Desserts. Plain gelatin, popsicles, fruit juice bars Children under 2 years old Oral rehydration fluids such are available at drug stores and most grocery stores without a prescription. Foster Diet A bland diet is used for patients with an upset stomach. It consists of foods that are mild and easy to digest. It is better to eat small frequent meals rather than three large meals a day. BEVERAGES OK: Fruit juices, non-caffeinated teas and coffee, non-carbonated lora AVOID: Carbonated beverage, caffeinated tea and coffee, all alcoholic beverages BREAD OK: Refined white, wheat or rye bread, sheila or soda crackers, Blossom toast, plain rolls, bagels AVOID: Whole-grain bread CEREAL OK: Refined cereals: cooked or ready to eat AVOID: Whole grain cereals and granola, or those containing bran, seeds or nuts DESSERTS OK: Peanut butter and all others except those to "avoid" AVOID: Chocolate, cocoa, coconut, popcorn, nuts, seeds, jam, marmalade FRUITS OK: Canned, cooked, frozen or fresh fruits without seeds or tough skin AVOID: Olives, skin and seeds of fruit MEATS OK: All fresh or preserved meat, fish and fowl AVOID: Any that are prepared with those spices to "avoid" CHEESE & EGGS OK: Eggs, cottage cheese, cream cheese, other cheeses AVOID: All cheeses made with those spices to "avoid" POTATOES & PASTA OK: Potato, rice, macaroni, noodles, spaghetti AVOID: None SOUPS OK: All soups without heavy seasoning AVOID: Soups made with those spices to "avoid" VEGETABLES OK: Canned, cooked, fresh or frozen mildly flavored vegetables without seeds, skins or coarse fiber AVOID: Vegetables prepared with those spices to "avoid"; skin and seeds of vegetables and those with coarse fiber SPICES OK: Salt, lemon and [place] juice, vinegar, all extracts, leigh, cinnamon, thyme, mace, allspice, paprika AVOID: [place] powder, cloves, pepper, seed spices, garlic, gravy pickles, highly seasoned salad dressings Clear Liquid Diet Clear liquids are any liquid that you can see through as well as those that are very easy to digest. This is used while the body is recovering from irritation or infection of the stomach or intestinal tract. It may also be used before special procedures or surgery. This diet is to be used no more than three days. You may include the following items. Adults Adults should drink a total of 23 quarts of liquid per day. It may be easier to drink small frequent servings rather than a few large ones. Liquids can include: Fruit juices.Strained orange juice or lemonade (no pulp), apple, grape and cranberry juice, clear fruit drinks, sports drinks Beverages.Sport drinks, sodas, mineral water (plain or flavored), tea, black coffee, liquid gelatin (add twice the recommended amount of water) Soups.Clear broth, consomm, bouillon Desserts.Plain gelatin, popsicles, fruit juice bars Children Over 2 years old The following liquids are acceptable for children over age 2: Fruit juices.Strained orange juice or lemonade (no pulp), apple, grape and cranberry juice, clear fruit drinks Beverages. Sports drinks, sodas, mineral water (plain or flavored), tea, liquid gelatin (add twice the recommended amount of water) Soups. Clear broth, consomm, bouillon Desserts. Plain gelatin, popsicles, fruit juice bars Children under 2 years old Oral rehydration fluids such are available at drug stores and most grocery stores without a prescription. Ondansetron Oral disintegrating tablet What is this medicine? ONDANSETRON (on TRAVIS se mary) is used to treat nausea and vomiting caused by chemotherapy. It is also used to prevent or treat nausea and vomiting after surgery. How should I use this medicine? These tablets are made to dissolve in the mouth. Do not try to push the tablet through the foil backing. With dry hands, peel away the foil backing and gently remove the tablet. Place the tablet in the mouth and allow it to dissolve, then swallow. While you may take these tablets with water, it is not necessary to do so. Talk to your hose tender regarding the use of this medicine in children. Special care may be needed. What side effects may I notice from receiving this medicine? Side effects that you should report to your doctor or health daytime caregiver as soon as possible: allergic reactions like skin rash, itching or hives, swelling of the face, lips, or tongue breathing problems dizziness fast or irregular heartbeat feeling faint or lightheaded, falls fever and chills swelling of the hands and feet tightness in the chest Side effects that usually do not require medical attention (report to your doctor or health daytime caregiver if they continue or are bothersome): constipation or diarrhea headache What may interact with this medicine? Do not take this medicine with any of the following medications: -apomorphine -cisapride -dofetilide -dronedarone -pimozide -thioridazine -ziprasidone This medicine may also interact with the following medications: -carbamazepine -phenytoin -rifampicin -tramadol -other medicines that prolong the QT interval (cause an abnormal heart rhythm) What if I miss a dose? If you miss a dose, take it as soon as you can. If it is almost time for your next dose, take only that dose. Do not take double or extra doses. Where should I keep my medicine? Keep out of the reach of children. Store between 2 and 30 degrees C (36 and 86 degrees F). Throw away any unused medicine after the expiration date. What should I tell my health care provider before I take this medicine? They need to know if you have any of these conditions: heart disease history of irregular heartbeat liver disease low levels of magnesium or potassium in the blood an unusual or allergic reaction to ondansetron, granisetron, other medicines, foods, dyes, or preservatives or trying to get breast-feeding What should I watch for while using this medicine? Check with your doctor or health daytime caregiver as soon as you can if you have any sign of an allergic reaction. You have been given the following additional information: Gastroenteritis, Non-Infectious (Child) (Adult) Diet, Clear Liquid Diet, Foster (Adult) Diet, Clear Liquid Ondansetron Oral disintegrating tablet (Electronically signed by Renu Nuno A.R.N.P. 09/17/2016 19:11)
== END 2016-09-17 15:38 | disposition home or self-care (01) ==
LOC: ED SRH 13:05
DX: K52.9 Noninfective gastroenteritis and colitis, unspecified (principal); F17.210 Nicotine dependence, cigarettes, uncomplicated; Z79.899 Other long term (current) drug therapy
CPT/HCPCS: 90004; 90100; 90469; 92235; 92530; 93070; 95059